=== PATIENT | female | born 1950 | race African-American/Black ===

== ENCOUNTER 2020-05-19 16:00 | Emergency (ER) | payer OTHER ==
[~2020-05-19] VITALS: Ht 172.7 cm; Wt 99.8 kg
[2020-05-19 16:10] VITALS: BP 181/92
--- NOTE | 2020-05-19 16:36 | Emergency Room Report ---
History of Present Illness General Chief Complaint: Multiple Trauma/Fall Source: Patient Present Illness HPI Disclaimer: Please note that this report is being documented using [employer] technology. This can lead to erroneous entry secondary to incorrect interpretation by the dictating instrument. HPI: This is a 69-year-old female with no reported past medical history presents from home for generalized weakness. States that she was sitting in her recliner when she slid out of her recliner about 4 days ago and was unable to get up out of bed. She denies any head trauma. She was found by her community case manager today on the floor. She is having some mild pain in her left elbow. She currently does have home health to come and change her lower extremity wraps about twice a week. She denies any nausea vomiting or urinary complaints. She has been unable to get off the floor for the last 4 days. She was alert and o riented on arrival. Allergies: Coded Allergies: No Known Allergies (Unverified , 05/19/20) COVID-19 Screening Contact w/high risk pt: No Experienced COVID-19 symptoms?: No COVID-19 Testing performed PERIOPERATIVE EDUCATOR: No Patient History Reviewed Nursing Documentation: PMH: Agreed; PSxH: Agreed Nursing Documentation-PMH Past Medical History: No Stated History Review of Systems All Other Systems: negative except mentioned in HPI Physical Exam Vital Signs Date Time Temp Pulse Resp B/P (MAP) Pulse Ox O2 Delivery O2 Flow Rate FiO2 05/19/20 15:54 98.2 103 18 181/92 (121) 98 Room Air Sp02 EP Interpretation: reviewed, normal General Appearance: no apparent distress, other - Poorly groomed Head: normocephalic, atraumatic Eyes: bilateral eye PERRL, bilateral eye EOMI ENT: hearing grossly normal, moist mucus membranes Neck: full range of motion, supple Respiratory: lungs clear, normal breath sounds, no rhonchi, no respiratory distress, no retraction, no wheezing Cardiovascular #1: normal peripheral pulses, no murmur, tachycardia Gastrointestinal: non tender, soft, non-distended, no guarding Musculoskeletal: other - Wound noted to left upper extremity around the elbow. Full range of motion of elbow. Erythema noted to the left forearm with warmth. Bilateral lower extremity edema noted with chronic skin changes bilaterally. Neurologic: alert, oriented x3, no focal defects Skin: normal color, warm/dry Medical Decision Making Diagnostic Impression: Primary Impression: Generalized weakness Additional Impressions: Rhabdomyolysis Left arm cellulitis ER Course MDM: Differential diagnosis included but not limited to dehydration, cellulitis, rhabdomyolysis, kidney failure, UTI, generalized weakness, failure to thrive to name a few Clinical course-IV inserted IV fluids given. Patient was alert and oriented on exam. Laboratory studies revealed mild elevation in CK. Potassium was low but I did not replace due to concern for rhabdo. Patient did have evidence of cellulitis of the left upper extremity IV antibiotics were given. Clear kidney function was normal. Patient was in her apartment alone 4 days on the floor with evidence of rhabdo and extremity cellulitis she will require admission to the hospital. Patient will be transferred to contracted facility, accepted by Dr. Floyd. Of note patient had a EKG completed in the ER with some ST depressions anteriorly however patient denied chest pain. Troponin was negative. Posterior EKG did not demonstrate any ST elevation so I have low suspicion for NM at this time. EKG interpretation-time 1648 impression sinus rhythm rate of 96 left atrial enlargement LVH, ST depression noted in V2 no ST elevations impression nonspecific EKG EKG interpretation time 1700 this is a posterior EKG impression sinus rhythm rate of [address] elevation noted throughout, impression nonspecific EKG Labs - Laboratory Tests Test 05/19/20 16:50 05/19/20 17:32 White Blood Count 10.8 K/UL (4.8-10.8) Red Blood Count 3.63 M/UL (4.20-5.40) L Hemoglobin 11.7 G/DL (12.0-16.0) L Hematocrit 36.0 % (37.0-47.0) L Mean Corpuscular Volume 99 FL (80-99) Mean Corpuscular Hemoglobin 32.4 PG (27.0-31.0) H Mean Corpuscular Hemoglobin Concent 32.6 G/DL (32.0-36.0) Red Cell Distribution Width 14.6 % (11.6-14.8) Platelet Count 346 K/UL (150-450) Mean Platelet Volume 6.9 FL (6.5-10.1) Neutrophils (%) (Auto) 81.0 % (45.0-75.0) H Lymphocytes (%) (Auto) 10.6 % (20.0-45.0) L Monocytes (%) (Auto) 7.4 % (1.0-10.0) Eosinophils (%) (Auto) 0.2 % (0.0-3.0) Basophils (%) (Auto) 0.8 % (0.0-2.0) Prothrombin Time 11.4 SEC (9.30-11.50) Prothrombin Time INR 1.0 (0.9-1.1) Activated Partial Thromboplast Time 25 SEC (23-33) Sodium Level 144 MMOL/L (136-145) Potassium Level 3.2 MMOL/L (3.5-5.1) L Chloride Level 103 MMOL/L (98-107) Carbon Dioxide Level 30 MMOL/L (21-32) Anion Gap 11 mmol/L (5-15) Blood Urea Nitrogen 10 mg/dL (7-18) Creatinine 0.7 MG/DL (0.55-1.30) Estimated Glomerular Filtration Rate > 60 mL/min (>60) Glucose Level 100 MG/DL (74-106) Lactic Acid Level 1.90 mmol/L (0.4-2.0) Calcium Level 8.9 MG/DL (8.5-10.1) Magnesium Level 2.0 MG/DL (1.8-2.4) Total Bilirubin 1.4 MG/DL (0.2-1.0) H Direct Bilirubin 0.5 MG/DL (0.0-0.3) H Aspartate Amino Transferase (AST) 55 U/L (15-37) H Alanine Aminotransferase (ALT) 35 U/L (12-78) Alkaline Phosphatase 253 U/L (46-116) H Total Creatine Kinase 467 U/L (26-308) H Creatine Kinase MB 3.9 NG/ML (0.0-3.6) H Creatine Kinase MB Relative Index 0.8 Troponin I 0.009 ng/mL (0.000-0.056) Total Protein 8.1 G/DL (6.4-8.2) Albumin 2.1 G/DL (3.4-5.0) L Globulin 6.0 g/dL Albumin/Globulin Ratio 0.3 (1.0-2.7) L Urine Color Brown Urine Appearance Very cloudy Urine pH 6.5 (4.5-8.0) Urine Specific [place] 1.010 (1.005-1.035) Urine Protein 2+ (NEGATIVE) H Urine Glucose (UA) Negative (NEGATIVE) Urine Ketones 4+ (NEGATIVE) H Urine Blood 5+ (NEGATIVE) H Urine Nitrite Negative (NEGATIVE) Urine Bilirubin Negative (NEGATIVE) Urine Urobilinogen 4 MG/DL (0.0-1.0) H Urine Leukocyte Esterase 1+ (NEGATIVE) H Urine RBC Tntc /HPF (0 - 2) H Urine WBC 2-4 /HPF (0 - 2) Urine Squamous Epithelial Cells Many /LPF (NONE/OCC) H Urine Bacteria Many /HPF (NONE) H Chest X-Ray Diagnostic Results Chest X-Ray Diagnostic Results : # of Views/Limited/Complete: 1 View Indication: Other - Weakness EP Interpretation: Yes Interpretation: no consolidation, no effusion, no pneumothorax Impression: No acute disease Electronically Signed by: Alberto Maradiaga MD Last Vital Signs Date Time Temp Pulse Resp B/P (MAP) Pulse Ox O2 Delivery O2 Flow Rate FiO2 05/19/20 15:54 98.2 103 18 181/92 (121) 98 Room Air Disposition: SHORT-TERM HOSP Condition: Serious Scripts No Active Prescriptions or Reported Meds Referrals: NOT CHOSEN IPA/,REFERRING (PCP) Alberto Maradiaga M.D. May 19, 2020 16:36
[2020-05-19 17:34] LABS: BASOPHILS % (AUTO) 0.8 % (0.0-2.0); EOSINOPHILS % (AUTO) 0.2 % (0.0-3.0); HEMOGLOBIN 11.7 G/DL (12.0-16.0); LYMPHOCYTES % (AUTO) 10.6 % (20.0-45.0); MEAN CORPUSCULAR VOLUME 99 FL (80-99); MONOCYTES % (AUTO) 7.4 % (1.0-10.0); PLATELET COUNT 346 K/UL (150-450); RED BLOOD COUNT 3.63 M/UL (4.20-5.40); RED CELL DISTRIBUTION WIDTH 14.6 % (11.6-14.8); WHITE BLOOD COUNT 10.8 K/UL (4.8-10.8)
[2020-05-19 17:53] LABS: ANION GAP 11 mmol/L (5-15); BLOOD UREA NITROGEN 10 mg/dL (7-18); CALCIUM 8.9 MG/DL (8.5-10.1); CARBON DIOXIDE 30 MMOL/L (21-32); CHLORIDE 103 MMOL/L (98-107); CREATININE 0.7 MG/DL (0.55-1.30); POTASSIUM 3.2 MMOL/L (3.5-5.1); SODIUM 144 MMOL/L (136-145)
[2020-05-19 18:07] LABS: ALANINE AMINOTRANSFERASE 35 U/L (12-78); ALBUMIN 2.1 G/DL (3.4-5.0); ALBUMIN/GLOBULIN RATIO 0.3 (1.0-2.7); ALKALINE PHOSPHATASE 253 U/L (46-116); ASPARTATE AMINO TRANSFERASE 55 U/L (15-37); BILIRUBIN,TOTAL 1.4 MG/DL (0.2-1.0); CKMB 3.9 NG/ML (0.0-3.6); CREATINE KINASE 467 U/L (26-308)
[2020-05-19 18:08] LABS: BILIRUBIN,DIRECT 0.5 MG/DL (0.0-0.3)
[2020-05-19 18:14] LABS: APPEARANCE,URINE VERY CLOUDY; BILIRUBIN, URINE NEGATIVE (NEGATIVE); COLOR,URINE BROWN; GLUCOSE, URINE (UA) NEGATIVE (NEGATIVE); KETONES,URINE 4+ (NEGATIVE); LEUKOCYTE ESTERASE ,URINE 1+ (NEGATIVE); NITRITE,URINE NEGATIVE (NEGATIVE); PH,URINE 6.5 (4.5-8.0); PROTEIN,URINE 2+ (NEGATIVE); UROBILINOGEN,URINE 4 MG/DL (0.0-1.0)
[2020-05-19] MEDS ORDERED: ceFAZolin sod 1 GM in NS 55 ML IVPB ONE (18:30)
[2020-05-19 19:02] VITALS: BP 187/94
[2020-05-19 19:15] VITALS: BP 169/71
[2020-05-19 20:00] VITALS: BP 166/75
--- NOTE | 2020-05-19 21:05 | Diagnostic Imaging Report ---
Indication: Shortness of breath Technique: One view of the chest Comparison: none Findings: There is a left pleural effusion. There is central interstitial prominence and bronchial wall thickening. The heart is borderline enlarged. Impression: Left pleural effusion Equivocal mild interstitial congestion Borderline cardiomegaly
--- NOTE | 2020-05-23 15:04 | Cardiology Report ---
APPROVED REPORT EKG Measurement Heart [id number] <Conclusion> Sinus rhythm with short IA Anteroseptal infarct, age undetermined ST & T wave abnormality, consider inferior ischemia Abnormal ECG
== END 2020-05-19 20:00 | disposition short-term general hospital (02) ==
LOC: EDBD 16:00 → EMR 16:20
DX: R53.1 Weakness (principal); M62.82 Rhabdomyolysis; L03.114 Cellulitis of left upper limb
CPT/HCPCS: 36415; 71045; 80053; 81003; 82248; 82550; 82553; 83605; 83735; 84484; 85025; 85610; 85730; 86850; 86900; 86901; 87040; 87086; 93005; 96361; 96365; 96375; 99284; J0360; J0690; J7030